=== PATIENT | male | born 1980 | race Caucasian/White ===

== ENCOUNTER 2022-10-20 19:53 | Emergency (ER) | payer MEDICAID, SELFPAY ==
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
[2022-10-20 19:54] VITALS: BP 136/98; PULSE 86; RESP 28; TEMP 36.6; O2SAT 96; BMI 43.5
--- NOTE | 2022-10-20 20:07 | EKG12_ITS ---
Test Reason : DYSRHYTHMIA Blood Pressure : / mmHG Vent. Rate : 088 BPM Atrial Rate : 088 BPM P-R Int : 136 ms QRS Dur : 088 ms QT Int : 358 ms P-R-T Axes : 028 030 029 degrees QTc Int : 433 ms Normal sinus rhythm Normal ECG Confirmed by KAYLA BAEZA, SACHA ([id number]), online editor JOSE MANUEL KEY ([id number]) on 10/23/2022 9:24:08 AM Referred By: TL Confirmed By:SACHA GARZA MD
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
[2022-10-20] MEDS: Ondansetron 4 MG/2 ML Vial IV (20:12)
[2022-10-20] MEDS: fentaNYL 100 MCG/2 ML Ampul 50 MCG IV (20:12)
[2022-10-20] MEDS: Diphth,Pertuss(Acell),Tet Vac 0.5 ML Vial IM (20:15)
[2022-10-20 20:17] LABS: Absolute Lymphocyte Count 4.85 X10^3/uL (0.83-4.51); Absolute Neutrophil Count 22.1 X10^3/uL (2.0-7.7); Basophil# 0.15 X10^3/uL; Basophil% 0.5 % (0-1); Eosinophil# 0.12 X10^3/uL; Eosinophils% 0.4 % (0-5); Hematocrit 47.1 % (40-54); Hemoglobin 15.8 g/dL (13.0-16.5); Lymphocyte # 4.85 X10^3/ul (0.83-4.51); Lymphocyte % 16.3 % (19-41); Mean Corp Hgb Conc 33.5 g/dL (32-36); Mean Corpuscular Hgb 30.2 pg (27.0-32.0); Mean Corpuscular Volume 90.1 fL (80-94); Mean Platelet Vol. 8.6 fl (6.2-12.0); Monocyte# 1.54 X10^3/uL; Monocyte% 5.2 % (0-10); NRBC Flagged by Analyzer 0 % (0-5); Neutrophil # 22.13 X10^3/uL (2.7-7.7); Neutrophil % 74.3 % (47-70); POSITIVE DIFFERENTIAL YES; Platelet Count 374 K/mm3 (150-450); RBC Distribution Width SD 42.7 fl (35.1-43.9); Red Blood Count 5.23 M/mm3 (4.6-6.2); White Blood Count 29.8 K/mm3 (4.4-11.0)
[2022-10-20 20:18] LABS: Differential Indicated SCAN CRITERIA MET
--- NOTE | 2022-10-20 20:24 | ED.RN ---
[facility] CALLED ETA FOR LOCAL GROUND 3-4 HOURS
--- NOTE | 2022-10-20 20:24 | ED.RN ---
[facility] CALLED FOR TRANSPORT THEY ARE CHECKING WEATHER AND WILL CALL BACK
[2022-10-20 20:26] LABS: International Normalized Ratio 1.1; Prothrombin Time (Protime)PT. 13.7 SECONDS (11.7-14.9)
[2022-10-20 20:27] LABS: Partial Thromboplast Time 27.2 Seconds (24.1-36.2)
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
[2022-10-20 20:39] LABS: Differential Comment SCANNED
--- NOTE | 2022-10-20 20:43 | ED.RN ---
[facility] CALL[facility] BACK UNABLE TO FLY AT THIS TIME, THEY ARE SENDING THEIR ALS CREW ETA 1.5 HOURS
[2022-10-20] MEDS: DiphenhydrAMINE 50 MG/ML Syringe IV (20:48)
[2022-10-20] MEDS: MethylPREDNISolone 125 MG/2 ML Vial IV (20:48)
[2022-10-20 21:03] LABS: Alcohol, Blood (Medical)-Serum < 3.0 mg/dL
[2022-10-20 21:04] LABS: AST(SGOT) 71 U/L (15-37); Alanine Aminotransfer ALT/SGPT 52 U/L (16-61); Albumin, Serum 2.3 g/dL (3.2-5.0); Alkaline Phosphatase 59 U/L (45-117); Amylase 69 U/L (25-115); Anion Gap 9 (5-15); BUN 13 mg/dL (7-18); BUN/Creat Ratio 14.2 RATIO (10-20); Bilirubin, Direct 0.09 mg/dL (0.00-0.30); Calcium,Total 5.8 mg/dL (8.5-10.1); Chloride 117 mmol/L (98-107); Creatinine, Serum 0.92 mg/dL (0.70-1.30); EST Glomerular Filtration Rate 97 mL/min (>60); Est Glom Filt Rate - Afr Amer 117 mL/min (>60); Estimated Creatinine Clearance 119.42 ml/min; Globulin 2.3 g/dL (2.2-4.2); Glucose 158 mg/dL (74-106); Potassium 2.4 mmol/L (3.5-5.1); Protein, Total 4.6 g/dL (6.4-8.2); Sodium Level 148 mmol/L (136-145)
[2022-10-20 21:05] LABS: Amphetamine Urine VISTA NEGATIVE (<1000 ng/mL); Barbiturate Urine VISTA NEGATIVE (< 200 ng/mL); Benzodiazepine Urine VISTA NEGATIVE (< 200 ng/mL); Cocaine Urine VISTA NEGATIVE (< 300 ng/mL); Ecstacy Urine VISTA NEGATIVE (< 500 ng/mL); Methadone Urine VISTA NEGATIVE (< 300 ng/mL); PCP Urine VISTA NEGATIVE (< 25 ng/mL); THC Urine VISTA POSITIVE (< 50 ng/mL); Vista UDS pH Range 5
[2022-10-20] MEDS: fentaNYL 100 MCG/2 ML Ampul IV (21:19)
[2022-10-20 21:25] VITALS: PULSE 107; RESP 18
[2022-10-20] MEDS: HYDROmorphone 1 MG/ML Syringe IV ×2 (22:08→22:31)
[2022-10-20 22:11] VITALS: BP 138/91; PULSE 103; RESP 18; TEMP 36.7; O2SAT 98
[2022-10-23 13:31] LABS: Pathologist Review Reviewed
== END 2022-10-20 22:40 | disposition short-term general hospital (02) ==
PROVIDERS: Emergency Provider Emergency Medicine; Visit Provider Emergency Medicine
DX: S22.41XA Multiple fractures of ribs, right side, initial encounter for closed fracture (principal); S32.049A Unspecified fracture of fourth lumbar vertebra, initial encounter for closed fracture; S32.029A Unspecified fracture of second lumbar vertebra, initial encounter for closed fracture; S32.039A Unspecified fracture of third lumbar vertebra, initial encounter for closed fracture; S32.9XXA Fracture of unspecified parts of lumbosacral spine and pelvis, initial encounter for closed fracture; F11.11 Opioid abuse, in remission; F17.210 Nicotine dependence, cigarettes, uncomplicated; S30.1XXA Contusion of abdominal wall, initial encounter; S20.20XA Contusion of thorax, unspecified, initial encounter; V44.5XXA Car driver injured in collision with heavy transport vehicle or bus in traffic accident, initial encounter; Z23 Encounter for immunization; Y93.89 Activity, other specified; Y99.9 Unspecified external cause status; Y92.413 State road as the place of occurrence of the external cause; Z79.891 Long term (current) use of opiate analgesic
CPT/HCPCS: 70450; 71045; 71250; 72125; 72170; 74176; 80048; 80076; 80307; 82077; 82150; 85025; 85610; 85730; 86850; 86900; 86901; 90715; 93005; 96372; 96374; 96375; 96376; 99285; A4216; J2405